=== PATIENT | male | born 1955 | race Caucasian/White ===

== ENCOUNTER 2017-03-27 08:38 | Inpatient (IN) | payer OTHER ==
[~2017-03-27] VITALS: Ht 170.2 cm; Wt 159.0 kg
[~2017-03-27 08:38] MED LIST: ACTIGALL300 MG PO; ACTOS15 MG PO; ADULT LOW DOSE81 M1 PO; ADVAIR 250/501 DISK IH; ATORVASTATIN CA40 MG PO; CARDIZEM CD,CA180 MG PO; DILTIAZEM 24HR180 MG PO; FUROSEMIDE40 MG PO; KLOR-CON M2020 MEQ PO; LEVAQUIN500 MG PO; LISINOPRIL10 MG PO; LOVASTATIN20 MG PO; LOW DOSE ASPIRI81 M1 PO; PIOGLITAZONE HC15 MG PO; PREDNISONE20 MG PO; SPIRIVA1 INHALATI IH; URSO PO; URSODIOL300 MG PO; VENTOLIN HFA18 GM IH; WARFARIN SODIUM10 MG PO; WARFARIN SODIUM5 MG PO; XARELTO20 MG PO
[2017-03-27 10:16] LABS: EOSINOPHIL (%) 0.1 % (0-5); HEMATOCRIT 34.2 % (38.0-50.0); IMMATURE GRANULOCYTE (%) 0.8 % (0.0-0.7); IMMATURE GRANULOCYTE COUNT 0.1 K/uL; INSTRUMENT ABS NEUTROPHIL CT 10.3 K/uL; LYMPHOCYTE COUNT 1.5 K/uL (1.0-2.8); MCH 33.3 PG (29.0-34.0); MCHC 33.9 G/DL (30.0-36.0); MCV 98.3 FL (86-99); MEAN PLAT.VOLUME 10.5 uM^3 (9.0-12.4); MONOCYTE (%) 9.6 % (3-12); MONOCYTE COUNT 1.3 K/uL (0-0.8); NEUTROPHIL (%) 78.2 % (45-76); NEUTROPHIL COUNT 10.3 K/uL (1.8-6.4); PLATELET COUNT 155 K/uL (156-360); RBC DIS.WIDTH-CV 13.3 % (11.8-14.6); RBC DIS.WIDTH-SD 47.8 % (39-53); RED BLOOD COUNT 3.48 M/uL (4.00-5.50); WHITE BLOOD COUNT 13.2 K/uL (4.1-10.2)
[2017-03-27 10:24] LABS: CHLORIDE 102 mEq/L (99-109); POTASSIUM 3.8 mEq/L (3.7-5.4); SODIUM 137 mEq/L (136-147)
[2017-03-27 10:26] LABS: GLUCOSE 176 mg/dL (70-99)
[2017-03-27 10:28] LABS: ANION GAP 16 MEQ/L (2-14)
[2017-03-27 10:30] LABS: ALKALINE PHOSPHATASE 48 IU/L (3-129); GFR ESTIMATE (CALCULATED) > 59 mL/min/
[2017-03-27 10:31] LABS: UREA NITROGEN (BUN) 24 mg/dL (9-23)
[2017-03-27 10:36] LABS: TROP-I INTERPRETATION NEGATIVE; TROPONIN-I 0.02 ng/mL (0.0-0.30)
[2017-03-27 10:39] LABS: INTER. NORMALIZED RATIO 2.3; PROTHROMBIN TIME 26.1 SEC (10.2-12.9)
[2017-03-27 10:42] LABS: PTT 32.7 SEC (25-37)
[2017-03-27] MEDS ORDERED: PROVENTIL,2.5 MG/3 M IH (12:44)
[2017-03-27] MEDS ORDERED: GLUCOPHAGE1000 MG PO (12:44)
[2017-03-27] MEDS ORDERED: ZITHROMAX250 MG PO (12:45)
[2017-03-27] MEDS ORDERED: ADVAIR 500/501 DISK IH (12:46)
[2017-03-27] MEDS ORDERED: DELTASONE20 M1 PO (12:50)
[2017-03-27 15:54] LABS: POINT-OF-CARE METER ID UU13113725
[2017-03-27 16:34] VITALS: BP 139/66
[2017-03-27 17:30] LABS: TROP-I INTERPRETATION NEGATIVE; TROPONIN-I 0.03 ng/mL (0.0-0.30)
[2017-03-27 21:57] LABS: POINT-OF-CARE METER ID UU13113725
[2017-03-27 22:03] LABS: TROP-I INTERPRETATION NEGATIVE; TROPONIN-I 0.02 ng/mL (0.0-0.30)
[2017-03-28] VITALS (7 sets, daily range): BP systolic 98–122; BP diastolic 45–60
[2017-03-28 07:00] LABS: HEMATOCRIT 35.1 % (38.0-50.0); MCH 33.1 PG (29.0-34.0); MCHC 33.6 G/DL (30.0-36.0); MCV 98.3 FL (86-99); MEAN PLAT.VOLUME 10.5 uM^3 (9.0-12.4); PLATELET COUNT 157 K/uL (156-360); RBC DIS.WIDTH-CV 13.2 % (11.8-14.6); RBC DIS.WIDTH-SD 47.6 % (39-53); RED BLOOD COUNT 3.57 M/uL (4.00-5.50); WHITE BLOOD COUNT 10.4 K/uL (4.1-10.2)
[2017-03-28 07:07] LABS: POINT-OF-CARE METER ID UU13113725
[2017-03-28 07:28] LABS: ANION GAP 11 MEQ/L (2-14); CHLORIDE 101 MEQ/L (99-109); GFR ESTIMATE (CALCULATED) > 59 mL/min/; POTASSIUM 4.2 MEQ/L (3.7-5.4); SAMPLE HEMOLYSIS CHECK 0; SAMPLE ICTERIC CHECK 0; SAMPLE LIPEMIA CHECK 0; SODIUM 135 MEQ/L (136-147); UREA NITROGEN (BUN) 17 mg/dL (9-23)
[2017-03-28 07:32] LABS: GLUCOSE 280 mg/dL (70-99)
[2017-03-28 16:30] LABS: POINT-OF-CARE METER ID UU13113725
[2017-03-28 19:54] LABS: HEMATOCRIT 34.4 % (38.0-50.0); MCV 97.7 FL (86-99)
[2017-03-29 06:05] LABS: HEMATOCRIT 35.9 % (38.0-50.0); MCH 33.8 PG (29.0-34.0); MCHC 34.3 G/DL (30.0-36.0); MCV 98.6 FL (86-99); MEAN PLAT.VOLUME 10.6 uM^3 (9.0-12.4); PLATELET COUNT 158 K/uL (156-360); RBC DIS.WIDTH-CV 12.9 % (11.8-14.6); RBC DIS.WIDTH-SD 46.5 % (39-53); RED BLOOD COUNT 3.64 M/uL (4.00-5.50); WHITE BLOOD COUNT 9.8 K/uL (4.1-10.2)
[2017-03-29 06:20] LABS: ANION GAP 12 MEQ/L (2-14); CHLORIDE 101 MEQ/L (99-109); GFR ESTIMATE (CALCULATED) > 59 mL/min/; GLUCOSE 306 mg/dL (70-99); POTASSIUM 4.6 MEQ/L (3.7-5.4); SAMPLE HEMOLYSIS CHECK 0; SAMPLE ICTERIC CHECK 0; SAMPLE LIPEMIA CHECK 0; SODIUM 138 MEQ/L (136-147); UREA NITROGEN (BUN) 21 mg/dL (9-23)
[2017-03-29 07:41] VITALS: BP 130/70
[2017-03-29] MEDS ORDERED: LEVAQUIN750 MG PO (08:19)
[2017-03-29] MEDS ORDERED: ACIDOPHILUS LA1 EAC1 PO (08:19)
== END 2017-03-29 12:53 | disposition home health service (06) | DRG 190 ==
LOC: EME 08:38 → 5EAST 12:36 → EDOF 12:36 → ENRESERV 12:37 → 5EAST 14:29 → ENPENDDIS 03-29 → 5EAST 03-29 12:53
PROVIDERS: Emergency Medicine; Internal Medicine
PROC: 5A09357 Assistance with Respiratory Ventilation, Less than 24 Consecutive Hours, Continuous Positive Airway Pressure (ICD-10-PCS; principal; 2017-03-27)
DX: J44.0 Chronic obstructive pulmonary disease with (acute) lower respiratory infection (principal); J18.9 Pneumonia, unspecified organism; R04.2 Hemoptysis; G47.33 Obstructive sleep apnea (adult) (pediatric); I48.2 Chronic atrial fibrillation; Z79.01 Long term (current) use of anticoagulants; J44.1 Chronic obstructive pulmonary disease with (acute) exacerbation; E66.01 Morbid (severe) obesity due to excess calories; I11.0 Hypertensive heart disease with heart failure; T45.515A Adverse effect of anticoagulants, initial encounter; R09.02 Hypoxemia; Z68.43 Body mass index [BMI] 50.0-59.9, adult; E11.9 Type 2 diabetes mellitus without complications; I50.9 Heart failure, unspecified; K59.00 Constipation, unspecified; M10.9 Gout, unspecified; R04.0 Epistaxis; Z87.891 Personal history of nicotine dependence; E78.5 Hyperlipidemia, unspecified; R91.1 Solitary pulmonary nodule; D68.32 Hemorrhagic disorder due to extrinsic circulating anticoagulants
CPT/HCPCS: 71010; 71275; 80048; 80053; 82948; 83605; 84484; 85014; 85018; 85025; 85027; 85610; 85730; 87040; 87070; 87205; 93005; 94640; 94640 76; 94799; 99202; 99281; 99285; J1815; J1956; J2930; J7030

== ENCOUNTER 2017-11-02 13:06 | Inpatient (IN) | payer OTHER ==
[~2017-11-02] VITALS: Ht 172.7 cm; Wt 141.2 kg
[~2017-11-02 13:06] MED LIST changes: +ACIDOPHILUS LA1 EAC1 PO; +ADVAIR 500/501 DISK IH; +DELTASONE20 M1 PO; +GLUCOPHAGE1000 MG PO; +LEVAQUIN750 MG PO; +PROVENTIL,2.5 MG/3 M IH; +ZITHROMAX250 MG PO
[2017-11-02 15:01] LABS: BASOPHIL (%) 0.2 % (0-1); BASOPHIL COUNT 0.1 K/uL (0-0.1); EOSINOPHIL (%) 0 % (0-5); HEMATOCRIT 38.9 % (38.0-50.0); HEMOGLOBIN 13.4 G/DL (12.5-16.6); LYMPHOCYTE (%) 6.6 % (15-42); LYMPHOCYTE COUNT 1.3 K/uL (1.0-2.8); MCH 32.4 PG (29.0-34.0); MCHC 34.4 G/DL (30.0-36.0); MCV 94.2 FL (86-99); MONOCYTE (%) 8.6 % (3-12); MONOCYTE COUNT 1.7 K/uL (0-0.8); NEUTROPHIL (%) 83.6 % (45-76); NEUTROPHIL COUNT 16.9 K/uL (1.8-6.4); PLATELET COUNT 141 K/uL (156-360); RBC DIS.WIDTH-CV 13.6 % (11.8-14.6); RBC DIS.WIDTH-SD 47.3 % (39-53); RED BLOOD COUNT 4.13 M/uL (4.00-5.50); WHITE BLOOD COUNT 20.2 K/uL (4.1-10.2)
[2017-11-02 15:28] LABS: CHLORIDE 102 mEq/L (99-109); POTASSIUM 5.9 mEq/L (3.7-5.4); SODIUM 134 mEq/L (136-147); TROP-I INTERPRETATION NEGATIVE; TROPONIN-I 0.02 ng/mL (0.0-0.30)
[2017-11-02 15:30] LABS: GLUCOSE 154 mg/dL (70-99)
[2017-11-02 15:33] LABS: CREATININE 2.1 mg/dL (0.6-1.3); GFR ESTIMATE (CALCULATED) 34 mL/min/ (58.99-99999)
[2017-11-02 15:34] LABS: UREA NITROGEN (BUN) 52 mg/dL (9-23)
[2017-11-02 16:38] LABS: APPEARANCE CLOUDY ((CLEAR)); BILIRUBIN NEGATIVE; BLOOD LARGE; COLOR AMBER ((YELLOW)); GLUCOSE (STRIP) NEGATIVE; KETONES NEGATIVE; LEUKOCYTES MODERATE; NITRITE NEGATIVE; PROTEIN (STRIP) 100; SPECIFIC GRAVITY 1.025 (1.000-1.030); UROBILINOGEN 0.2 MG/DL (0.2-1.0)
[2017-11-02] MEDS ORDERED: METFORMIN HCL1000 MG PO (16:58)
[2017-11-02] MEDS ORDERED: ELIQUIS5 MG PO (16:59)
[2017-11-02] MEDS ORDERED: INCRUSE ELLI62.5 MCG IH (16:59)
[2017-11-02] MEDS ORDERED: POTASSIUM CHLO20 ME1 PO (17:00)
[2017-11-02] MEDS ORDERED: DILTIAZEM 24HR180 MG PO (17:01)
[2017-11-02 17:03] LABS: BACTERIA 3+ /HPF; EPITHELIAL CELLS RARE /HPF; MUCUS NONE SEEN /LPF; RED BLOOD CELLS 30-40 /HPF (0-5); UCUL ADDED? YES
[2017-11-02] MEDS ORDERED: LO-DOSE ASPIRIN81 M2 PO (17:08)
[2017-11-02] MEDS ORDERED: VITAMIN B-12500 MC3 PO (17:09)
[2017-11-02 19:39] LABS: TROP-I INTERPRETATION NEGATIVE; TROPONIN-I 0.01 ng/mL (0.0-0.30)
[2017-11-02 20:25] LABS: CHLORIDE 102 mEq/L (99-109); POTASSIUM 5.1 mEq/L (3.7-5.4); SODIUM 134 mEq/L (136-147)
[2017-11-02 20:26] LABS: GLUCOSE 168 mg/dL (70-99)
[2017-11-02 20:30] LABS: GFR ESTIMATE (CALCULATED) 36 mL/min/ (58.99-99999)
[2017-11-02 20:31] LABS: UREA NITROGEN (BUN) 52 mg/dL (9-23)
[2017-11-02 20:45] VITALS: BP 111/57
[2017-11-02 21:00] VITALS: BP 111/57
[2017-11-03 00:50] VITALS: BP 126/66
[2017-11-03 01:16] LABS: TROP-I INTERPRETATION NEGATIVE; TROPONIN-I 0.02 ng/mL (0.0-0.30)
[2017-11-03 06:54] VITALS: BP 95/51
[2017-11-03 07:04] VITALS: BP 96/51
[2017-11-03 07:12] LABS: BASOPHIL (%) 0.3 % (0-1); EOSINOPHIL (%) 0.3 % (0-5); HEMATOCRIT 36.3 % (38.0-50.0); HEMOGLOBIN 12.1 G/DL (12.5-16.6); IMMATURE GRANULOCYTE (%) 0.9 % (0.0-0.7); LYMPHOCYTE COUNT 1.3 K/uL (1.0-2.8); MCH 31.2 PG (29.0-34.0); MCHC 33.3 G/DL (30.0-36.0); MCV 93.6 FL (86-99); MONOCYTE COUNT 1.1 K/uL (0-0.8); NEUTROPHIL (%) 79.5 % (45-76); PLATELET COUNT 136 K/uL (156-360); RBC DIS.WIDTH-CV 13.7 % (11.8-14.6); RBC DIS.WIDTH-SD 46.8 % (39-53); RED BLOOD COUNT 3.88 M/uL (4.00-5.50); WHITE BLOOD COUNT 12.6 K/uL (4.1-10.2)
[2017-11-03 07:22] LABS: TROP-I INTERPRETATION NEGATIVE; TROPONIN-I 0.02 ng/mL (0.0-0.30)
[2017-11-03 07:44] LABS: ALBUMIN 3.9 G/DL (3.2-4.8); ALKALINE PHOSPHATASE 41 IU/L (3-129); ALT (GPT) 21 IU/L (3-49); AST (GOT) 14 IU/L (2-34); CHLORIDE 102 MEQ/L (99-109); GLUCOSE 139 mg/dL (70-99); POTASSIUM 4.5 MEQ/L (3.7-5.4); SODIUM 134 MEQ/L (136-147); TOTAL BILIRUBIN 1.1 MG/DL (0.0-1.0); TOTAL PROTEIN 5.8 G/DL (6.4-8.3); UREA NITROGEN (BUN) 30 mg/dL (9-23)
[2017-11-03 07:46] LABS: GFR ESTIMATE (CALCULATED) > 59 mL/min/ (58.99-99999)
[2017-11-03 10:09] LABS: HEMOGLOBIN A1c (GLYCOHEMOGLOB) 7.5 % (Below 5.7)
[2017-11-03 11:20] VITALS: BP 108/62
[2017-11-03 19:30] VITALS: BP 104/65
[2017-11-04 00:10] VITALS: BP 131/67
[2017-11-04 04:33] VITALS: BP 115/44
[2017-11-04 05:20] LABS: BASOPHIL (%) 0.4 % (0-1); EOSINOPHIL (%) 0.6 % (0-5); HEMATOCRIT 34.5 % (38.0-50.0); HEMOGLOBIN 11.6 G/DL (12.5-16.6); IMMATURE GRANULOCYTE (%) 1.3 % (0.0-0.7); LYMPHOCYTE (%) 15.4 % (15-42); MCH 31.4 PG (29.0-34.0); MCHC 33.6 G/DL (30.0-36.0); MCV 93.2 FL (86-99); MONOCYTE (%) 12.1 % (3-12); MONOCYTE COUNT 0.8 K/uL (0-0.8); NEUTROPHIL (%) 70.2 % (45-76); NEUTROPHIL COUNT 4.7 K/uL (1.8-6.4); PLATELET COUNT 134 K/uL (156-360); RBC DIS.WIDTH-CV 13.4 % (11.8-14.6); RBC DIS.WIDTH-SD 45.5 % (39-53); WHITE BLOOD COUNT 6.7 K/uL (4.1-10.2)
[2017-11-04 05:52] LABS: ALBUMIN 3.8 G/DL (3.2-4.8); ALKALINE PHOSPHATASE 45 IU/L (3-129); ALT (GPT) 36 IU/L (3-49); AST (GOT) 28 IU/L (2-34); CHLORIDE 100 MEQ/L (99-109); CREATININE 0.8 MG/DL (0.6-1.3); GFR ESTIMATE (CALCULATED) > 59 mL/min/ (58.99-99999); GLUCOSE 150 mg/dL (70-99); POTASSIUM 4.4 MEQ/L (3.7-5.4); SODIUM 133 MEQ/L (136-147); TOTAL BILIRUBIN 0.8 MG/DL (0.0-1.0); TOTAL PROTEIN 5.8 G/DL (6.4-8.3); UREA NITROGEN (BUN) 17 mg/dL (9-23)
[2017-11-04 06:59] VITALS: BP 104/63
[2017-11-04 11:25] VITALS: BP 104/65
[2017-11-04] MEDS ORDERED: LEVAQUIN750 MG PO (12:47)
[2017-11-04] MEDS ORDERED: JANUVIA100 MG PO (12:47)
[2017-11-04] MEDS ORDERED: DILTIAZEM 24HR120 MG PO (12:47)
[2017-11-04 15:20] VITALS: BP 127/67
== END 2017-11-04 17:20 | disposition home or self-care (01) | DRG 683 ==
LOC: EME 13:06 → 4EAST 16:04 → EDOF 16:04 → ENRESERV 16:06 → 4EAST 20:33
PROVIDERS: Emergency Medicine; Hospitalist
DX: N17.9 Acute kidney failure, unspecified (principal); E87.2 Acidosis; E87.1 Hypo-osmolality and hyponatremia; E87.5 Hyperkalemia; I95.9 Hypotension, unspecified; N39.0 Urinary tract infection, site not specified; B96.20 Unspecified Escherichia coli [E. coli] as the cause of diseases classified elsewhere; E86.0 Dehydration; R55 Syncope and collapse; I48.2 Chronic atrial fibrillation; I10 Essential (primary) hypertension; E78.5 Hyperlipidemia, unspecified; E11.9 Type 2 diabetes mellitus without complications; G47.33 Obstructive sleep apnea (adult) (pediatric); J44.9 Chronic obstructive pulmonary disease, unspecified; E66.01 Morbid (severe) obesity due to excess calories; Z68.42 Body mass index [BMI] 45.0-49.9, adult; Z79.01 Long term (current) use of anticoagulants; Z79.82 Long term (current) use of aspirin; Z87.891 Personal history of nicotine dependence; Z87.442 Personal history of urinary calculi; Z88.0 Allergy status to penicillin; D69.6 Thrombocytopenia, unspecified
CPT/HCPCS: 70450; 71045; 76770; 80048; 80048 91; 80053; 80202; 81003; 82948; 83036; 83605; 84484; 85025; 87040; 87077; 87086; 87186; 87641; 93005; 94640; 94640 76; 94660; 99202; 99281; 99285; J1644; J1815; J1956; J3370; J7030; J7050